=== PATIENT | female | born 1945 | race Caucasian/White ===

== ENCOUNTER 2018-03-04 21:24 | Emergency (ER) | payer MEDICARE ==
[~2018-03-04] VITALS: Ht 167.6 cm; Wt 81.6 kg
--- NOTE | 2018-03-04 21:38 | Emergency Room Report ---
History of Present Illness General Chief Complaint: Altered Level of Consciousness Source: Patient, Medical Record, EMS Present Illness HPI Is a 72-year-old female with a history of dementia, high blood pressure, and seizure. She is currently in a rehabilitation facility for seizure and frequent fall. She presents with chief complaint of altered mental status and high blood pressure. At baseline she has waxing and waning alert fullness. No seizure seen. Her blood pressure was little elevated so her daughter wanted to come in to be evaluated. History is limited on this patient. She denies any issue right now. Allergies: Coded Allergies: CODEINE (Verified Allergy, Unknown, 03/04/18) Patient History Past Medical History: see triage record, old chart reviewed, HTN, dementia, seizures Past Surgical History: other Pertinent Family History: none Social History: Denies: smoking Last Menstrual Period: n/a Now: No Immunizations: other Reviewed Nursing Documentation: PMH: Agreed; PSxH: Agreed Nursing Documentation-PMH Hx Hypertension: Yes Hx Seizures: Yes Review of Systems Eye: Denies: eye pain, blurred vision ENT: Denies: ear pain, nose congestion, throat swelling Respiratory: Denies: cough, shortness of breath Cardiovascular: Denies: chest pain, palpitations Gastrointestinal: Denies: abdominal pain, diarrhea, nausea, vomiting Musculoskeletal: Denies: back pain, joint pain Skin: Denies: rash Neurological: Denies: headache, numbness Endocrine: Denies: increased thirst, increased urine Hematologic/Lymphatic: Denies: easy bruising All Other Systems: negative except mentioned in HPI Physical Exam Vital Signs Date Time Temp Pulse Resp B/P (MAP) Pulse Ox O2 Delivery O2 Flow Rate FiO2 03/04/18 21:21 98.2 82 20 157/76 95 Nasal Cannula 3.0 98.2 vitals with high blood pressure Sp02 EP Interpretation: reviewed, normal General Appearance: well appearing, no apparent distress, alert, obese Head: normocephalic, atraumatic Eyes: bilateral eye PERRL, bilateral eye EOMI ENT: hearing grossly normal, normal pharynx Neck: full range of motion, supple, no meningismus Respiratory: chest non-tender, lungs clear, normal breath sounds Cardiovascular #1: regular rate, rhythm, no murmur Gastrointestinal: normal bowel sounds, non tender, no mass, no organomegaly, no bruit, non-distended Musculoskeletal: back normal, normal range of motion Neurologic: alert, grossly normal Psychiatric: mood/affect normal Skin: warm/dry Medical Decision Making Diagnostic Impression: Primary Impression: Altered level of consciousness ER Course Patient presents with an altered mental status. No evidence of any seizure activity. She may be sundowning, dementia. She could have nonfocal seizure. Her valproic acid is normal. Her blood pressure better now. No evidence of ACS , PE, dissection to name a few. No evidence of UTI. Her CBC is unremarkable other differential show elevated monocyte count. This may be an viral infection. Lab Results Impression labs unremarkable EKG Diagnostic Results Rate: normal Rhythm: NSR ST Segments: no acute changes Rhythm Strip Diag. Results Rhythm Strip Time: 21:37 EP Interpretation: yes Rate: 82 Rhythm: NSR, no PVC's, no ectopy Chest X-Ray Diagnostic Results Chest X-Ray Diagnostic Results : Chest X-Ray Ordered: Yes # of Views/Limited/Complete: 1 View Indication: Shortness of Breath EP Interpretation: Yes Interpretation: no consolidation, no effusion, no pneumothorax, no acute cardiopulmonary disease Impression: No acute disease Electronically Signed by: Diogo Pina MD CT/MRI/US Diagnostic Results CT/MRI/US Diagnostic Results : Imaging Test Ordered: CT head Impression negative per radiologist Last Vital Signs Date Time Temp Pulse Resp B/P (MAP) Pulse Ox O2 Delivery O2 Flow Rate FiO2 6//18 21:21 98.2 82 20 157/76 95 Nasal Cannula 3.0 98.2 Status: improved Disposition: XFER SNF Condition: Stable Patient Instructions: Altered Mental Status Additional Instructions: Follow-up with your 7 days. Return if symptom worsen. DIOGO PINA M.D. Mar 04, 2018 21:38
[2018-03-04 21:46] VITALS: BP 167/76
[2018-03-04 21:55] LABS: APPEARANCE,URINE CLEAR; BASOPHILS % (AUTO) 0.8 % (0.0-2.0); BILIRUBIN, URINE NEGATIVE (NEGATIVE); COLOR,URINE YELLOW; EOSINOPHILS % (AUTO) 0.1 % (0.0-3.0); GLUCOSE, URINE (UA) NEGATIVE (NEGATIVE); HEMATOCRIT 35.4 % (37.0-47.0); HEMOGLOBIN 11.6 G/DL (12.0-16.0); KETONES,URINE 3+ (NEGATIVE); LEUKOCYTE ESTERASE ,URINE 1+ (NEGATIVE); LYMPHOCYTES % (AUTO) 8.2 % (20.0-45.0); MEAN CORPUSCULAR VOLUME 90 FL (80-99); MONOCYTES % (AUTO) 12.1 % (1.0-10.0); NEUTROPHILS % (AUTO) 78.8 % (45.0-75.0); NITRITE,URINE NEGATIVE (NEGATIVE); PH,URINE 6 (4.5-8.0); PLATELET COUNT 336 K/UL (150-450); PROTEIN,URINE 2+ (NEGATIVE); RED BLOOD COUNT 3.91 M/UL (4.20-5.40); RED CELL DISTRIBUTION WIDTH 13.5 % (11.6-14.8); UROBILINOGEN,URINE NORMAL MG/DL (0.0-1.0)
[2018-03-04] MEDS ORDERED: PRAVACHOL20 MG ORAL (22:01)
[2018-03-04] MEDS ORDERED: KEPPRA1000 MG ORAL (22:01)
[2018-03-04] MEDS ORDERED: POTASSIUM CHLO10 ME3 ORAL (22:01)
[2018-03-04] MEDS ORDERED: MIRAPEX0.125 MG ORAL (22:01)
[2018-03-04] MEDS ORDERED: DEPAKENE250 MG/5 M PO (22:01)
[2018-03-04] MEDS ORDERED: VIMPAT150 MG PO (22:01)
[2018-03-04] MEDS ORDERED: SINEMET 25-1001 EAC1 ORAL (22:01)
[2018-03-04] MEDS ORDERED: CYMBALTA60 MG ORAL (22:01)
[2018-03-04] MEDS ORDERED: HEPARIN SO5000 UNIT2 SUBQ (22:01)
[2018-03-04] MEDS ORDERED: PROTONIX40 MG ORAL (22:01)
[2018-03-04] MEDS ORDERED: METOPROLOL TART50 M1 ORAL (22:01)
[2018-03-04 22:11] LABS: ANION GAP 8 mmol/L (5-15); BLOOD UREA NITROGEN 16 mg/dL (7-18); CALCIUM 9.2 MG/DL (8.5-10.1); CARBON DIOXIDE 29 MMOL/L (21-32); CHLORIDE 106 MMOL/L (98-107); CREATININE 0.7 MG/DL (0.55-1.30); POTASSIUM 4.2 MMOL/L (3.5-5.1); SODIUM 143 MMOL/L (136-145)
[2018-03-04] MEDS ORDERED: LORazepam Inj 2mg/ml 1ml IV ONE (22:45)
[2018-03-04 23:13] VITALS: BP 118/86
[2018-03-04 23:25] VITALS: BP 118/86
--- NOTE | 2018-03-05 09:54 | Diagnostic Imaging Report ---
Indications: Altered mental status Technique: Spiral acquisitions obtained through the brain. Angled axial and coronal 5 x 5 mm slices were reconstructed. Total dose length product 1414.24 mGycm. CTDI vol(s) 70.38 mGy. Dose reduction achieved using automated exposure control Comparison: None. Findings: No acute intracranial hemorrhage or edema, mass effect, nor midline shift. There is mild age-related enlargement of the ventricles and extra-axial CSF spaces, minimal periventricular deep white matter low-attenuation consistent with chronic ischemic change. Visualized orbits and sinuses are unremarkable. The calvarium is intact. Impression: Chronic and age-related changes. Negative for acute intracranial bleed or mass effect This agrees with the preliminary interpretation provided overnight by [facility] teleradiology service. The CT scanner at [facility] is accredited by the [employer] and the scans are performed using protocols designed to limit radiation exposure to as low as reasonably achievable to attain images of sufficient resolution adequate for diagnostic evaluation.
--- NOTE | 2018-03-05 10:55 | Diagnostic Imaging Report ---
Indication: Shortness of breath Technique: One view of the chest Comparison: none Findings: Patient is rotated to the right. Lungs demonstrate central bronchial wall thickening, otherwise clear. Heart size is upper limits normal. There are cholecystectomy clips. Pleural spaces are clear. Impression: No acute process
--- NOTE | 2018-03-07 19:45 | Cardiology Report ---
APPROVED REPORT EKG Measurement Heart [id number] Normal sinus rhythm Normal ECG
== END 2018-03-04 23:28 ==
LOC: EDBD 21:24 → EMR 21:40
DX: R41.82 Altered mental status, unspecified (principal); I10 Essential (primary) hypertension; Z86.69 Personal history of other diseases of the nervous system and sense organs; Z88.5 Allergy status to narcotic agent
CPT/HCPCS: 36415; 70450; 71045; 80048; 80164; 81001; 84484; 85025; 93005; 96374; 96375; 99284; J0360